=== PATIENT | male | born 1985 | race Caucasian/White ===

== ENCOUNTER 2019-01-30 11:41 | Emergency (ER) | payer SELFPAY ==
[2019-01-30 12:06] VITALS: BP 129/78
[2019-01-30] MEDS ORDERED: KETOROLAC 60 MG/2 ML VIAL IM STA (13:03)
--- NOTE | 2019-01-30 13:06 | XRAY Report ---
Reason: fall, R shoulder pain Procedure Date: 01/30/2019 Accession Number: [id number] / [id number] Procedure: XR - Shoulder 3 View RT CPT Code: Addended Final Report FULL RESULT: EXAM:RIGHT SHOULDER RADIOGRAPHY EXAM DATE: 01/30/2019 12:40 PM. CLINICAL HISTORY: Fall, R shoulder pain. COMPARISON: None. TECHNIQUE: 3 views. FINDINGS: Bones: Normal. No fracture or bone lesion. Joints: Widening of left acromial clavicular joint with approximately 10 mm widening. Findings consistent with acromioclavicular joint separation (grade 2/3). Soft tissues: The visualized hemithorax is unremarkable. No soft tissue swelling. IMPRESSION: 10 mm joint separation at left acromial clavicle joint, suggestive of AC joint separation (grade 2/3). No acute displaced fracture. [facility] ADDENDUM: 01/30/19 15:05 10 mm joint separation of right acromial clavicular joint. Suggestive of right AC joint separation. (The correct side is the right side).
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
== END 2019-01-30 13:39 | disposition home or self-care (01) ==
LOC: ED 11:41
DX: S43.101A Unspecified dislocation of right acromioclavicular joint, initial encounter (principal); V86.99XA Unspecified occupant of other special all-terrain or other off-road motor vehicle injured in nontraffic accident, initial encounter; F17.200 Nicotine dependence, unspecified, uncomplicated
CPT/HCPCS: 96372; 99283; 99284